=== PATIENT | female | born 1985 | race Hispanic/Latino ===

== ENCOUNTER 2024-01-29 15:37 | Emergency (ER) | payer OTHER ==
[~2024-01-29] VITALS: Ht 157.5 cm; Wt 104.3 kg
[2024-01-29] MEDS: SOLU-MEDROL 125MG VIAL IVP ONE (16:42)
[2024-01-29] MEDS: FAMOTIDINE 20MG VIAL IV ONE (16:42)
[2024-01-29] MEDS: DiphenhydrAMINE HCL 50 MG/ML VIAL IV ONE (16:42)
[2024-01-29] MEDS ORDERED: DIPH-1242 PO (17:03)
[2024-01-29] MEDS ORDERED: FAMO-136 PO (17:03)
[2024-01-29 17:29] VITALS: BP 125/82; PULSE 89; RESP 20; O2SAT 99
[2024-01-29] MEDS ORDERED: PRED20TA3 PO (17:29)
== END 2024-01-29 17:40 | disposition home or self-care (01) ==
LOC: EDH 15:37
DX: T78.49XA Other allergy, initial encounter (principal); Z79.899 Other long term (current) drug therapy; Z98.890 Other specified postprocedural states; X58.XXXA Exposure to other specified factors, initial encounter
CPT/HCPCS: 99284; 96374; 96375; J1200; J3490; J2919